=== PATIENT | female | born 1965 | race American Indian/Alaskan Native ===

== ENCOUNTER 2017-12-29 07:20 | Emergency (ER) | payer OTHER ==
[2017-12-29 07:47] VITALS: BP 147/83
[2017-12-29] MEDS ORDERED: MOTRIN PO ONE (09:13)
[2017-12-29] MEDS ORDERED: FLEXERIL PO ONE (09:13)
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
== END 2017-12-29 10:30 | disposition home or self-care (01) ==
LOC: ED 07:20
DX: S42.292A Other displaced fracture of upper end of left humerus, initial encounter for closed fracture (principal); S13.4XXA Sprain of ligaments of cervical spine, initial encounter; S46.912A Strain of unspecified muscle, fascia and tendon at shoulder and upper arm level, left arm, initial encounter; Z88.6 Allergy status to analgesic agent; V89.2XXA Person injured in unspecified motor-vehicle accident, traffic, initial encounter; Y93.89 Activity, other specified; Y92.488 Other paved roadways as the place of occurrence of the external cause; Y99.8 Other external cause status
CPT/HCPCS: 72040; 99283